=== PATIENT | female | born 1980 | race Caucasian/White ===

== ENCOUNTER 2018-09-09 17:17 | Emergency (ER) | payer MEDICAID ==
[2018-09-09] MEDS ORDERED: Iopamidol 755 Mg/ML 100 ML Bottle IV ONE (17:59)
[2018-09-09] MEDS ORDERED: Sodium Chloride 0.9% 50 ML IV SCH (18:00)
--- NOTE | 2018-09-09 18:03 | EDM.PDOC ---
ED HPI GENERAL MEDICAL PROBLEM - General Stated Complaint: BAD HEADACHE, THREW UP BLOOD Time Seen by Provider: 09/09/18 17:38 Source of Information: Reports: Patient History Limitations: Reports: No Limitations - History of Present Illness INITIAL COMMENTS - FREE TEXT/NARRATIVE: Patient presents with severe neck pain that started 36 hours ago when she woke up yesterday morning. The pain is in the posterior left lateral region. The pain is completely gone when she lays supine with her head relaxed but severe when upright. She has a lump on back of head that she noticed a few days before this pain started. She denies any fever or injury of any kind. Yesterday she had chest pain along with this and went to the [place] [facility]; they did EKG and troponin and diagnosed torticollis with treatment of Toradol and Valium. That hasn't helped the neck pain at all but she doesn't have the chest pain anymore. She denies vision changes, balance problems. She has a lump on upper anterior scalp too she says. She went to the clinic and saw Madelyn Cunningham who called me and sent her to ER. Before she left the clinic she vomited once that had some blood in it she said. Left Headache Pain Score (Numeric/FACES): 10 - Related Data Allergies Allergy/AdvReac Type Severity Reaction Status Date / Time bee venom protein (honey bee) Allergy Hives Verified 09/09/18 18:32 Penicillins Allergy Cannot Verified 09/09/18 18:32 Remember Sulfa (Sulfonamide Allergy Cannot Verified 09/09/18 18:32 Antibiotics) Remember Home Meds: Home Meds Ketorolac [Toradol] 1 tab PO Q6H PRN 09/09/18 [History] Naproxen Sodium 220 mg PO DAILY 09/09/18 [History] diazePAM [Valium] 1 tab PO Q8H PRN 09/09/18 [History] oxyCODONE HCl/Acetaminophen [Oxycodone-Acetaminophen 5-325] 1 each PO Q6H PRN [History] ED ROS GENERAL - Review of Systems Review Of Systems: See Below Constitutional: Reports: Decreased Appetite (some). Denies: Fever, Chills, Weakness HEENT: Denies: Dental Pain, Ear Discharge, Ear Pain, Throat Pain, Vision Change Respiratory: Denies: Shortness of Breath, Cough Cardiovascular: Denies: Chest Pain, Lightheadedness, Syncope Endocrine: Reports: No Symptoms GI/Abdominal: Reports: Nausea (when she sits up). Denies: Abdominal Pain, Constipation, Diarrhea, Vomiting : Denies: Dysuria Musculoskeletal: Reports: Neck Pain. Denies: Shoulder Pain, Arm Pain, Back Pain , Hand Pain Skin: Denies: Cyanosis, Jaundice, Mottled, Pallor, Diaphoresis Neurological: Denies: Confusion, Dizziness, Seizure, Syncope, Trouble Speaking Psychiatric: Denies: Agitation, Anxiety, Confusion - Physical Exam Exam: See Below Exam Limited By: No Limitations General Appearance: Alert, WD/WN, No Apparent Distress Eye Exam: Bilateral Eye: EOMI, Normal Inspection, PERRL Ears: Normal External Exam, Normal Canal, Hearing Grossly Normal, Normal TMs Nose: Normal Inspection, No Blood Throat/Mouth: Normal Inspection, Normal Lips, Normal Oropharynx, Normal Voice, No Airway Compromise Head Exam: Atraumatic, Scalp Tenderness (left mastoid), Other (There are two 1.5 -2.0 cm lumps consistent with sebaceous cysts; one on superior anterior scalp and one on left occipital scalp. They are mildly tender to palpation.) Neck: Tender Lateral (left posterior musculature), Other. No: Tender Midline Respiratory/Chest: No Respiratory Distress, Lungs Clear, Normal Breath Sounds Cardiovascular: Regular Rate, Rhythm, No Murmur GI/Abdominal: Normal Bowel Sounds, Soft, Non-Tender, No Organomegaly, No Distention Neuro Exam (Abbreviated): Alert, Oriented, CN II-XII Intact, Normal Cognition, No Motor/Sensory Deficits Back Exam: Normal Inspection, Full Range of Motion. No: CVA Tenderness (L), CVA Tenderness (R) Extremities: Normal Inspection, Normal Range of Motion Psychiatric: Normal Affect, Anxious Skin Exam: Warm, Dry, Intact, Normal Color, No Rash Course - Vital Signs Last Recorded V/S: Last Vital Signs Temp 97.8 F 09/09/18 18:35 Pulse 70 09/09/18 19:46 Resp 18 09/09/18 19:46 BP 134/64 09/09/18 19:46 Pulse Ox 94 L 09/09/18 19:46 - Orders/Labs/Meds Orders: Active Orders 24 hr Category Date Time Status Sodium Chloride 0.9% [Normal Saline] 50 ml Med 09/09/18 18:00 Active IV ASDIRECTED Medication Orders Sodium Chloride (Normal Saline) 50 mls @ 200 mls/min IV ASDIRECTED SINTIA Last Admin: 09/09/18 18:32 Dose: 200 mls/min Labs: Laboratory Tests 09/09/18 09/09/18 09/09/18 Range/Units 17:45 17:45 17:45 WBC 8.66 (5.00-10.00) 10^3/uL RBC 4.13 (3.80-5.50) 10^6/uL Hgb 10.8 L (12.0-16.0) g/dL Hct 34.8 L (37.0-47.0) % MCV 84.3 (82.0-92.0) fL MCH 26.2 L (27.0-31.0) pg MCHC 31.0 L (32.0-36.0) g/dL RDW 14.8 H (11.5-14.5) % Plt Count 286 (150-400) 10^3/uL MPV 9.7 (7.4-10.4) fL Immature Gran % (Auto) 0.3 (0.0-5.0) % Neut % (Auto) 72.0 H (50.0-70.0) % Lymph % (Auto) 18.4 L (20.0-40.0) % [place] % (Auto) 6.5 (2.0-8.0) % Eos % (Auto) 2.3 (1.0-3.0) % Baso % (Auto) 0.5 (0.0-1.0) % Immature Gran # (Auto) 0.03 (0.00-0.50) 10^3/uL Neut # (Auto) 6.24 (2.50-7.00) 10^3/uL Lymph # (Auto) 1.59 (1.00-4.00) 10^3/uL [place] # (Auto) 0.56 (0.10-0.80) 10^3/uL Eos # (Auto) 0.20 (0.10-0.30) 10^3/uL Baso # (Auto) 0.04 (0.00-0.10) 10^3/uL Sodium 143 (136-145) mmol/L Potassium 3.7 (3.3-5.3) mmol/L Chloride 106 (98-115) mmol/L Carbon Dioxide 28.3 (21.0-32.0) mmol/L Anion Gap 12.4 (5-15) mmol/L BUN 13 (6-25) mg/dL Creatinine 0.57 (0.51-1.17) mg/dL Est Cr Clr Drug Dosing TNP Estimated GFR (MDRD) > 60 mL/min Glucose 92 (75 - 99) mg/dL Lactic Acid 1.5 (0.4-2.0) mmol/L Calcium 8.7 (8.7-10.3) mg/dL C-Reactive Protein 1.1 H (0.0-0.9) mg/dL Meds: Medications Generic Name Dose Route Start Last Admin Trade Name Freq PRN Reason Stop Dose Admin Sodium Chloride 50 mls @ 200 mls/min 09/09/18 18:00 09/09/18 18:32 Normal Saline IV 200 mls/min ASDIRECTED SINTIA Administration Discontinued Medications Generic Name Dose Route Start Last Admin Trade Name Freq PRN Reason Stop Dose Admin Hydromorphone HCl 1 mg 09/09/18 18:33 09/09/18 18:42 Dilaudid IVPUSH 09/09/18 18:34 1 mg ONETIME ONE Administration Iopamidol 100 ml 09/09/18 17:59 09/09/18 18:32 Isovue-370 (76%) IV 09/09/18 18:00 75 ml ONETIME ONE Administration Ondansetron HCl 4 mg 09/09/18 18:33 09/09/18 18:39 Zofran IVPUSH 09/09/18 18:34 4 mg ONETIME ONE Administration - Re-Assessments/Exams Free Text/Narrative Re-Assessment/Exam: 09/09/18 19:19 CT results show a possible left cervical carotid dissection. Patient wanted to go to [facility] in [place] but they couldn't accept so will go to [facility]. I called and am waiting box person back now. 09/09/18 20:26 I discussed case with Dr. Ferrari who accepted for transfer 45 minutes ago. We are waiting, to let patient go via ambulance, for bed placement. She seems to be stable so far. 09/09/18 21:22 [facility] called with bed number so patient left in ambulance a few minutes ago in stable condition. Departure - Departure Time of Disposition: 21:22 Disposition: DC/Tfer to Acute Hospital 02 Condition: Good Clinical Impression: Internal carotid artery dissection, Neck pain - Discharge Information Referrals: Madelyn Cunningham PA-C [Primary Care Provider] - - My Orders Last 24 Hours: My Active Orders 09/09/18 18:00 Sodium Chloride 0.9% [Normal Saline] 50 ml IV ASDIRECTED - Assessment/Plan Last 24 Hours: My Active Orders 09/09/18 18:00 Sodium Chloride 0.9% [Normal Saline] 50 ml IV ASDIRECTED
[2018-09-09 18:20] LABS: ANION GAP 12.4 mmol/L (5-15); CHLORIDE,CL 106 mmol/L (98-115); SODIUM,NA 143 mmol/L (136-145)
[2018-09-09] MEDS ORDERED: HYDROmorphone 1 MG/ML Syringe IVPUSH ONE (18:33)
[2018-09-09] MEDS ORDERED: Ondansetron 4 MG/2 ML SDV IVPUSH ONE (18:33)
--- NOTE | 2018-09-09 19:12 | CT ---
[id number] CT/CT Neck Soft Tissue W IV Exam: CT Neck Soft Tissue W IV Clinical Data: LEFT SIDE NECK PAIN. RETROAURICULAR PAIN. LEFT-SIDED MASTOID PAIN. COMPARISON: NO PREVIOUS SIMILAR EXAM IS AVAILABLE FINDINGS: There is near complete opacification of the left sphenoid sinus. The middle ear and mastoid air cells are aerated bilaterally. The parotid and submandibular glands are unremarkable. The parapharyngeal spaces are normal on both sides. The floor of the mouth and base of the tongue are unremarkable. There appears to be an abnormal appearance of the cervical portion of the left internal carotid artery. If symptoms persist, consider CT angiography of the head and neck using the stroke protocol. Report called. Also there is question of an aneurysm of the anterior communicating artery versus averaging with the tuberculum sellae. This also could be further advanced with high-resolution imaging. IMPRESSION: QUESTION OF LEFT CERVICAL CAROTID DISSECTION VERSUS ARTIFACT MIMICKING SUCH. CONSIDER A HIGHER RESOLUTION EXAM. Manpreet Rodriguez MD 09/09/18 [id number] Thank you for allowing us to participate in the care of your patient.
== END 2018-09-09 21:10 ==
LOC: KA.ED 17:17
DX: I77.71 Dissection of carotid artery (principal); M54.2 Cervicalgia; Z79.899 Other long term (current) drug therapy; Z88.0 Allergy status to penicillin; Z88.2 Allergy status to sulfonamides; Z91.030 Bee allergy status
CPT/HCPCS: 36415; 70491; 80048; 83605; 85025; 86140; 96374; 96375; 99285; J1170; J2405; J7050; Q9967

== ENCOUNTER 2021-10-15 17:05 | Emergency (ER) | payer MEDICAID | END 2021-10-15 18:00 | disposition home or self-care (01) | LOC: KA.ED 17:05 | DX: R60.0 Localized edema (principal); Z88.0 Allergy status to penicillin; Z91.030 Bee allergy status; Z88.2 Allergy status to sulfonamides; Z79.82 Long term (current) use of aspirin | CPT/HCPCS: 73630-RT; 99283 ==

== ENCOUNTER 2022-06-18 14:02 | Emergency (ER) | payer MEDICAID | END 2022-06-18 15:00 | disposition home or self-care (01) | LOC: KA.ED 14:02 | DX: S86.911D Strain of unspecified muscle(s) and tendon(s) at lower leg level, right leg, subsequent encounter (principal); M23.8X1 Other internal derangements of right knee; Z91.030 Bee allergy status; Z88.0 Allergy status to penicillin; Z88.2 Allergy status to sulfonamides; Z79.82 Long term (current) use of aspirin; W19.XXXD Unspecified fall, subsequent encounter | CPT/HCPCS: 99283; 99284 ==